=== PATIENT | male | born 1990 | race Two or more races ===

== ENCOUNTER 2017-12-11 11:10 | Emergency (ER) | payer MEDICAID ==
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
== END 2017-12-11 11:43 | disposition home or self-care (01) ==
LOC: MW.ED 11:10
DX: S40.211A Abrasion of right shoulder, initial encounter (principal); Y04.1XXA Assault by human bite, initial encounter
CPT/HCPCS: 87491; 87591; 99283

== ENCOUNTER 2018-11-23 13:09 | Emergency (ER) | payer SELFPAY ==
--- NOTE | 2018-11-23 13:21 | EDM.PDOC ---
ED HPI GENERAL MEDICAL PROBLEM - General Chief Complaint: Upper Extremity Injury/Pain Stated Complaint: RIGHT HAND ISSUES Time Seen by Provider: 11/23/18 13:19 Source of Information: Reports: Patient History Limitations: Reports: No Limitations - History of Present Illness INITIAL COMMENTS - FREE TEXT/NARRATIVE: HISTORY AND PHYSICAL: History of present illness: Patient is a 28-year-old male who presents to the emergency room today with complaints of right hand pain. He states approximately one year ago he did have a boxer's fracture along with some torn tendon which he was informed he didn't need surgery. He states at that time he did not follow-up with a hand surgeon or orthopedic provider. Since his initial injury he has had pain over the past one year. He is here now as he would like to follow-up with a specialist to have this re-looked at and possible surgery. He states he has been taking over- the-counter pain medication without much relief. He denies any new injury, trauma or new sensation of pain. States he is otherwise healthy and offers no other concerns or complaints today. Review of systems: As per history of present illness and below otherwise all systems reviewed and negative. Past medical history: As per history of present illness and as reviewed below otherwise noncontributory. Surgical history: As per history of present illness and as reviewed below otherwise noncontributory. Social history: See social history for further information Family history: As per history of present illness and as reviewed below otherwise noncontributory. Physical exam: General: Well-developed and well-nourished 28-year-old male. Alert and oriented. Nontoxic appearing and in no acute distress. HEENT: Atraumatic, normocephalic, pupils equal and reactive bilaterally, negative for conjunctival pallor or scleral icterus, mucous membranes moist, trachea midline. No drooling or trismus noted. No meningeal signs. No hot potato voice noted. Lungs: Clear to auscultation, breath sounds equal bilaterally, chest nontender. Heart: S1S2, regular rate and rhythm without overt murmur Abdomen: Soft, nondistended, nontender. Skin: Intact, warm, dry. No lesions or rashes noted. Extremities: Atraumatic, moves all extremities per self without difficulty or deficits, normal variance of inability to fully extend the 4th and 5th digit of DIP joint. Strong radial pulse. Cap refill less than 3 seconds. Neurovascular unremarkable. Neuro: Awake, alert, oriented. Cranial nerves II through XII unremarkable. Cerebellum unremarkable. Motor and sensory unremarkable throughout. Exam nonfocal. Notes: X-ray shows no acute findings. Information for the orthopedic provider and hand surgeon was discussed. Supportive care measures were reviewed and discussed. Voices understanding and is agreeable to plan of care. Denies any further questions or concerns at this time. Diagnostics: Hand X-ray Therapeutics: Leburn Prescription: Diclofenac (#30) Impression: Hand Pain, Right Plan: 1. Tylenol and/or ibuprofen as needed for pain management. 2. Follow-up with the orthopedic or hand surgeon as we discussed. Return to the ED as needed and as discussed. Definitive disposition and diagnosis as appropriate pending reevaluation and review of above. Duration: Chronic Right Hand Pain Score (Numeric/FACES): 7 - Related Data Allergies Allergy/AdvReac Type Severity Reaction Status Date / Time zolpidem [From Ambien] Allergy Hallucinati Verified 11/23/18 13:25 ons Home Meds: Home Meds . [No Known Home Meds] 12/11/17 [History] Past Medical History - Past Health History Medical/Surgical History: Denies Medical/Surgical History - Infectious Disease History Infectious Disease History: Reports: Chicken Pox, MRSA Social & Family History - Family History Family Medical History: Noncontributory Review of Systems - Review of Systems Review Of Systems: ROS reveals no pertinent complaints other than HPI. ED EXAM, GENERAL - Physical Exam Exam: See Below (See dictation) Course - Vital Signs Last Recorded V/S: Last Vital Signs Temp 96.1 F 11/23/18 13:21 Pulse 90 11/23/18 13:21 Resp 18 11/23/18 13:21 BP 122/64 11/23/18 13:21 Pulse Ox 98 11/23/18 13:21 - Orders/Labs/Meds Orders: Active Orders 24 hr Category Date Time Status Hand Comp Min 3V Rt [CR] Stat Exams 11/23/18 13:46 Taken Meds: Medications Discontinued Medications Generic Name Dose Route Start Last Admin Trade Name Freq PRN Reason Stop Dose Admin Hydrocodone Bitart/Acetaminophen 1 tab 11/23/18 13:46 11/23/18 13:52 Leburn 325-5 Mg PO 11/23/18 13:47 1 tab ONETIME ONE Administration Departure - Departure Time of Disposition: 14:08 Disposition: Home, Self-Care 01 Clinical Impression: Right hand pain - Discharge Information Instructions: Hand Pain Forms: ED Department Discharge Additional Instructions: The following information is given to patients seen in the emergency department who are being discharged to home. This information is to outline your options for follow-up care. We provide all patients seen in our emergency department with a follow-up referral. The need for follow-up, as well as the timing and circumstances, are variable depending upon the specifics of your emergency department visit. If you don't have a primary care physician on staff, we will provide you with a referral. We always advise you to contact your personal physician following an emergency department visit to inform them of the circumstance of the visit and for follow-up with them and/or the need for any referrals to a consulting specialist. The emergency department will also refer you to a specialist when appropriate. This referral assures that you have the opportunity for follow-up care with a specialist. All of these measure are taken in an effort to provide you with optimal care, which includes your follow-up. Under all circumstances we always encourage you to contact your private physician who remains a resource for coordinating your care. When calling for follow-up care, please make the office aware that this follow-up is from your recent emergency room visit. If for any reason you are refused follow-up, please contact the [facility] Emergency Department at and asked to speak to the emergency department charge nurse. [facility] Specialty Care - Orthopedic Clinic (Dr. Oliva, Meg RODNEY, Julieth Vidal NP) Professional Building [address] [place] [address], [address] [place] [address] 1. Tylenol and/or ibuprofen as needed for pain management. 2. Please call the orthopedic office to set up a follow up appointment. Return to the ED as needed and as discussed. - My Orders Last 24 Hours: My Active Orders 11/23/18 13:46 Hand Comp Min 3V Rt [CR] Stat - Assessment/Plan Last 24 Hours: My Active Orders 11/23/18 13:46 Hand Comp Min 3V Rt [CR] Stat
[2018-11-23] MEDS ORDERED: Acetaminophen/HYDROcodone 325-5 MG Tab PO ONE (13:46)
--- NOTE | 2018-11-23 14:20 | CR ---
Indication: Pain Technique: Right hand 3 views. Comparison: None Findings: No acute fracture. Old fracture deformity of the 5th metacarpal neck. Mild ulnar minus variance. Normal joint spaces. Impression: No acute fracture. Dictated by Joe Carrasquillo MD @ Nov 23 2018 2:16PM Signed by Dr. Joe Carrasquillo @ Nov 23 2018 2:18PM
== END 2018-11-23 14:25 | disposition home or self-care (01) ==
LOC: MW.ED 13:09
DX: M79.641 Pain in right hand (principal); F17.210 Nicotine dependence, cigarettes, uncomplicated; Z88.8 Allergy status to other drugs, medicaments and biological substances
CPT/HCPCS: 73130; 99283; A9270

== ENCOUNTER 2018-11-25 12:50 | Emergency (ER) | payer SELFPAY ==
[2018-11-25] MEDS ORDERED: Ketorolac 60 MG/2 ML SDV IM ONE (13:20)
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
--- NOTE | 2018-11-25 14:06 | CR ---
EXAMINATION: Right hand HISTORY: Trauma COMPARISON: 11/23/2018 TECHNIQUE: 3 views FINDINGS/IMPRESSION: There is no acute osseous abnormality, dislocation, or fracture. Bone mineralization and joint spaces are preserved. Old healed fifth metacarpal fracture deformity.
== END 2018-11-25 14:35 | disposition home or self-care (01) ==
LOC: MW.ED 12:50
DX: S60.221A Contusion of right hand, initial encounter (principal); Z88.8 Allergy status to other drugs, medicaments and biological substances; W23.1XXA Caught, crushed, jammed, or pinched between stationary objects, initial encounter; Y99.0 Civilian activity done for income or pay
CPT/HCPCS: 73130; 96372; 99283; J1885